=== PATIENT | male | born 1950 | race Caucasian/White ===

== ENCOUNTER 2021-06-30 08:00 | Outpatient (CLI) | payer MEDICARE ==
--- NOTE | 2021-06-30 14:38 | XRAY Report ---
PROCEDURE: Chest 2 View X-Ray INDICATIONS: COUGH TECHNIQUE: 2 view(s) of the chest. COMPARISON: None. FINDINGS: Surgical changes and devices: None. Lungs and pleura: Emphysematous change with a bibasilar predominance. Question small bilateral pleura l effusions versus bibasilar pleural blunting. Question right lower lobe lung mass. Mediastinum: There is right hilar fullness. Question prominent vasculature versus adenopathy. Heart s ize is normal. Bones and chest wall: No suspicious bony abnormalities. Soft tissues appear unremarkable. IMPRESSION: 1. Emphysema with a bibasilar predominance. 2. Question right lower lobe lung mass with right hilar fullness. Recommend chest CT with contrast. Comment: These findings were flagged as urgent in the PACS system, requiring a call to the referring provider from the staff at [facility]. Reviewed by: Valeriy Munoz MD on 06/30/2021 2:36 PM PDT Approved by: Valeriy Munoz MD on 06/30/2021 2:36 PM PDT Station ID: [id number]
== END 2021-06-30 23:59 | disposition home or self-care (01) ==
LOC: DI.N 08:00
PROVIDERS: ATTEND Physician Assistant
DX: J43.9 Emphysema, unspecified (principal)

== ENCOUNTER 2022-08-01 08:00 | Outpatient (CLI) | payer MEDICARE | END 2022-08-01 23:59 | disposition home or self-care (01) | LOC: LAB.N 08:00 | PROVIDERS: ATTEND Registered Nurse | DX: N48.9 Disorder of penis, unspecified (principal) | CPT/HCPCS: 86803; 87070; 87205; 87340; 87389; 87522 ==

== ENCOUNTER 2022-08-02 10:47 | Outpatient (CLI) | payer MEDICARE | END 2022-08-02 10:48 | disposition home or self-care (01) | LOC: LAB.N 10:47 | PROVIDERS: ATTEND Physician Assistant | DX: Z53.9 Procedure and treatment not carried out, unspecified reason (principal) ==

== ENCOUNTER 2023-11-26 09:43 | Inpatient (IN) ==
--- NOTE | 2023-11-26 09:56 | ED Physician Documentation ---
PD HPI DYSPNEA Stated complaint Stated Complaint: OD Chief complaint Chief Complaint: General History obtained from History obtained from: Patient History of Present Illness Timing - onset: How many days ago (1-2) Timing - details: Gradual onset and Still present Severity Comments: He has noted some headache developing since yesterday. No history of ACEVEDO. Inciting event(s): Out of meds (He ran out of his trazodone for sleep at night 100 mg about 7 to 8 days ago. Difficulty with getting refill and is available today at the pharmacy. He attributes weakness and confusion to withdrawal from the trazodone.) Similar symptoms before: Has not had sx before Additional information Additional information: He uses trazodone for sleep at night and generally anxiety. He takes 100 mg nightly. He has been doing this for many years. His prescription ran out 7 to 8 days ago and there is difficulty with the refill. It is available today but he had not slept well for the last 5 or 6 days. He is feeling somewhat anxious, generally weak, somewhat confused and also developed headache. No flu type symptoms such as fever chills or cough. Baseline dyspnea with COPD. Because he was having headache and general what he felt were "withdrawal from trazodone" symptoms, he was an attempt to feel better, took previous prescription of oxycodone/acetaminophen. He did take what was in the bottle which was he believes 16 tablets. He did not intentionally need to take an ov erdose per se. He started getting sleepy and realized he had overdone and called EMS. They found him to be somnolent but still with good oxygenation and ventilation. They did give Narcan anyway and he became even more awake. On arrival here he is conversant but does seem place a little confused. He is quite sure in his own thinking that the symptoms are from trazodone withdrawal. Meds/Allgy Home Medications Ambulatory Orders Medication Instructions Recorded Confirmed diclofenac sodium 100 mg 75 mg PO BID 12/14/15 11/26/23 tablet,extended release 24 hr aspirin 81 mg tablet,delayed 81 mg PO DAILY 11/26/23 11/26/23 release atorvastatin 20 mg tablet 20 mg PO DAILY 11/26/23 11/26/23 bupropion HCl 150 mg 24 hr tablet, 150 mg PO DAILY 11/26/23 11/26/23 extended release duloxetine 60 mg capsule,delayed 60 mg PO DAILY 11/26/23 11/26/23 release levothyroxine 150 mcg tablet 150 mcg PO DAILY 11/26/23 11/26/23 pregabalin 150 mg capsule 150 mg PO DAILY 11/26/23 11/26/23 trazodone 50 mg tablet 50 mg PO BID 11/26/23 11/26/23 Allergies Allergies Allergy/AdvReac Type Severity Reaction Status Date / Time penicillin G Allergy Unknown Verified 11/26/23 10:01 [facility] Medical History Medical History (Updated 11/26/23 @ 14:25 by Eb Muñoz DNP) Hypothyroidism Depression Anxiety Insomnia Surgical History Surgical History (Updated 11/26/23 @ 10:01 by Kerline Lang, RN, BSN) History of hip replacement, total Social History Social History (Updated 11/26/23 @ 10:01 by Kerline Lang, RN, BSN) Smoking Status: Former smoker If you are a former smoker, when did you quit? (Date/Year): 09/2022 How many cigarettes a day do you smoke? (20 cigarettes=1 Pk): 20 Second hand tobacco smoke exposure: No Do you dip or chew tobacco?: No Relationship: Level: Independent Home Mobility Equipment: Cane Do you feel safe in your home environment?: Yes Suffered physical, verbal, emotional, or financial abuse?: No Exam Constitutional normal general appearance and average body habitus HENMT normocephalic Eyes PERRL and EOMs intact bilaterally Lymph no lymphadenopathy noted Chest palpation of chest normal Respiratory auscultation abnormal (wheeziong noted.) Cardiovascular normal heart rate noted, regular rhythm noted and no edema Neurology director of national sales II-XII intact, no movement abnormality noted, no focal motor deficit noted and no sensory deficits noted Results Vitals Vitals: Vital Signs - 24 hr 11/26/23 09:48 11/26/23 10:14 11/26/23 10:15 Temperature 36.8 C Pulse Rate 72 70 68 Respiratory Rate 17 20 18 Blood Pressure 148/85 H 143/93 H O2 Saturation 97 99 O2 Source Room air Room air Room air Pain Intensity 6 11/26/23 10:20 11/26/23 10:31 11/26/23 11:00 Temperature Pulse Rate 72 73 Respiratory Rate 18 16 Blood Pressure 140/78 H 142/78 H O2 Saturation 97 99 O2 Source Room air Room air Pain Intensity 6 11/26/23 11:06 11/26/23 11:30 11/26/23 12:00 Temperature Pulse Rate 74 74 Respiratory Rate 22 24 Blood Pressure 133/84 H 140/85 H O2 Saturation 98 97 O2 Source Room air Room air Pain Intensity 5 8 8 11/26/23 12:14 11/26/23 12:30 11/26/23 13:00 Temperature Pulse Rate 79 77 Respiratory Rate 26 H 20 Blood Pressure 140/84 H 154/90 H O2 Saturation 95 94 O2 Source Room air Room air Pain Intensity 8 8 6 Oxygen O2 Source Room air Labs Labs: Laboratory Tests 11/26/23 10:06 WBC 11.9 H RBC 4.72 Hgb 14.9 Hct 43.3 MCV 91.7 MCH 31.6 H MCHC 34.4 RDW 11.8 L Plt Count 269 MPV 9.4 Neut # (Auto) 9.9 H Lymph # (Auto) 0.9 L [place] # (Auto) 0.9 Eos # (Auto) 0.1 Baso # (Auto) 0.0 Absolute Nucleated RBC 0.00 Nucleated RBC % 0.0 Sodium 125 L Potassium 3.9 Chloride 91 L Carbon Dioxide 28 Anion Gap 6.0 BUN 11 Creatinine 1.0 Estimated GFR (MDRD) 74 L Glucose 171 H Calcium 9.3 Magnesium 1.5 L Total Bilirubin 1.0 AST 26 ALT 24 Alkaline Phosphatase 68 Total Protein 6.5 Albumin 4.0 Globulin 2.5 Albumin/Globulin Ratio 1.6 Lipase 10 L Salicylates < 1.5 Acetaminophen 40.2 H* Ethyl Alcohol < 10.0 PD Medical Decision Making ED course Complexity details: d/w information technology consultant (hospitalist) ED course: The patient has not had much sleep in the last 5 or 6 days due to running out of his trazodone and difficulty with a refill. He was having headache as well. With some level of confusion and such, he did unintentionally take an overdose of his Percocet. He did not have suicidal ideation but was trying to get rid of his headache and then realized he had taken far too many and called EMS. He is still having concerns about his headache which is new and unusual for him. His CT of the head did not show any acute bleeds or obvious abnormality to my view. Report is still pending. He seems to be awake now after 3 hours from arrival. I feel the Narcan has had time to wear off and I do not feel he is at risk of resedation. He was given tramadol sorry Toradol to help with his headache and some Tylenol as well. Labs found his sodium to be 125. He does not take any diuretic. He may have over hydrated perhaps. Unclear. I asked if he had any history of hyponatremia or low sodium and he is not familiar with that. We do not have previous labs here. In addition to the concern for the oxycodone overdose, the acetaminophen component would still be of concern. The initial Tylenol level was 45 but was only at a 2-hour postingestion. The timing was longer than I would expect to help with charcoal so held off at the moment and with concern of resedation. We will recheck the level in 2 more hours and see if it is higher enough to be of concern. At this point with his general weakness, some level of confusion, headache and low sodium of 125, I feel these warranted to be in the hospital. I talked with the hospitalist who is in agreement. Discharge Plan Discharge Patient Disposition: ED Place in Observation Condition: Stable Clinical Impression: Acute hyponatremia, Acute confusion, General weakness Headache Qualifiers: Headache type: unspecified Headache chronicity pattern: acute headache Intractability: not intractable Qualified Code(s): R51.9 - Headache, unspecified Accidental overdose Qualifiers: Encounter type: initial encounter Qualified Code(s): T50.901A - Poisoning by unspecified drugs, medicaments and biological substances, accidental ( unintentional), initial encounter COPD (chronic obstructive pulmonary disease) Qualifiers: COPD type: unspecified COPD Qualified Code(s): J44.9 - Chronic obstructive pulmonary disease, unspecified Interventions: ED Admission Assessment Last Done: 11/26/23 14:05
[2023-11-26 10:10] LABS: BASOPHILS % (AUTO) 0.3 %; EOSINOPHILS # (AUTO) 0.1 10^3/uL (0.0-0.7); EOSINOPHILS % (AUTO) 0.4 %; HCT - HEMATOCRIT 43.3 % (42.0-52.0); HGB - HEMOGLOBIN 14.9 g/dL (14.0-18.0); LYMPHOCYTES # (AUTO) 0.9 10^3/uL (1.5-3.5); LYMPHOCYTES % (AUTO) 7.5 %; MEAN CORPUSCULAR HEMOGLOBIN 31.6 pg (27.0-31.0); MEAN CORPUSCULAR HGB CONC 34.4 g/dL (32.0-36.0); MEAN CORPUSCULAR VOLUME 91.7 fL (80.0-94.0); MEAN PLATELET VOLUME 9.4 fL (7.4-11.4); MONOCYTES # (AUTO) 0.9 10^3/uL (0.0-1.0); MONOCYTES % (AUTO) 7.8 %; NEUTROPHILS # (AUTO) 9.9 10^3/uL (1.5-6.6); NEUTROPHILS % (AUTO) 83.2 %; PLT - PLATELET COUNT 269 10^3/uL (130-450); RED BLOOD COUNT 4.72 10^6/uL (4.70-6.10); RED CELL DISTRIBUTION WIDTH 11.8 % (12.0-15.0); WHITE BLOOD COUNT 11.9 x10^3/uL (4.8-10.8)
[2023-11-26] MEDS: IPRATROPIUM/ALBUTEROL 3 ML NEB INH STA (10:11)
[2023-11-26] MEDS: SODIUM CHLORIDE 0.9% 1,000 ML IV STA ×2 (10:19→11:43)
[2023-11-26] MEDS: KETOROLAC 15 MG/ML VIAL IVP STA (10:20)
[2023-11-26 10:25] LABS: ALBUMIN/GLOBULIN RATIO 1.6 (1.0-2.2); ALKALINE PHOSPHATASE 68 IU/L (42-121); ALT ALANINE AMINOTRANSFERASE 24 IU/L (10-60); AST ASPARTATE AMINOTRANSFERASE 26 IU/L (10-42); BUN - BLOOD UREA NITROGEN 11 mg/dL (6-20); CALCIUM 9.3 mg/dL (8.5-10.3); CARBON DIOXIDE - CO2 28 mmol/L (21-32); CHLORIDE 91 mmol/L (101-111); ETOH - ETHANOL < 10.0 mg/dL; GFR - MDRD 74 (>89); GLUCOSE 171 mg/dL (74-104); LIPASE 10 U/L (11-82); MAGNESIUM 1.5 mg/dL (1.7-2.3); POTASSIUM 3.9 mmol/L (3.5-4.5); SODIUM 125 mmol/L (135-145); TOTAL PROTEIN 6.5 g/dL (6.4-8.9)
[2023-11-26 10:39] LABS: SALICYLATE < 1.5 mg/dL
[2023-11-26 10:40] LABS: ACETAMINOPHEN 40.2 ug/mL
[2023-11-26] MEDS: MAGNESIUM SULFATE 2 GRAM 2 GM/50 ML BAG IV ONE (11:43)
[2023-11-26] MEDS: HYDROmorphone 1 MG/ML CARPUJECT IVP STA (12:14)
[2023-11-26] MEDS: traZODone 50 MG TABLET PO STA (12:14)
--- NOTE | 2023-11-26 12:47 | CT Report ---
PROCEDURE: CT Head WO INDICATIONS: headache since yesterday TECHNIQUE: Noncontrast 4.5 mm thick angled axial sections acquired from the foramen magnum to the vertex. For r adiation dose reduction, the following was used: automated exposure control, adjustment of mA and/or kV according to patient size. COMPARISON: None. FINDINGS: Image quality: Excellent. CSF spaces: Basal cisterns are patent. No extra-axial fluid collections. Ventricles are normal in size and shape. Brain: No midline shift. No intracranial masses or hemorrhage. [place]-white matter interface is norm al. Skull and face: Calvarium and visualized facial bones are intact, without suspicious lesions. Sinuses: Visualized sinuses and mastoids are clear. IMPRESSION: No acute intracranial pathology. Reviewed by: Valeriy Munoz MD on 11/26/2023 12:45 PM PDT Approved by: Valeriy Munoz MD on 11/26/2023 12:45 PM PDT Station ID: [id number]
--- NOTE | 2023-11-26 13:32 | HISTORY & PHYSICAL EXAMINATION ---
Chief Complaint <Fartun Diallo - Amador Filed: 11/26/23 14:01> Chief Complaint Chief Complaint: Overdose on oxycodone with Tylenol History of Present Illness <Fartun Diallo - Amador Filed: 11/26/23 14:01> Admitted From Admitted From:: ER History Obtained From Records Reviewed: yes History obtained from: patient interview Exam Limitations: none History of Present Illness HPI Comment/Other: Patient presenting today with accidental overdose of oxycodone mixed with Tylenol. Patient states he took 16 pills last night at 9 PM. He got dizzy and then called 911. Patient states that he took these pills due to a constant 8 out of 10 headache that he has been experiencing for the last 3 days. Patient suddenly ran out of trazodone prescription 8 days ago. He endorses nausea, tinnitus, dizziness and having no energy for the last few days. He called his PCP last night and the doctor was able to refill his trazodone prescription this morning. Patient also complained of shortness of breath including on exertion. He has a history of COPD but his at home spirometry shows a range between 93-97 consistently. Patient states he has not been eating very well and does not typically drink much water. He states that he increased his water intake to 6 glasses in the last 48 hours. He is urinating about 4-5 times a day. Patient denies any recent use of drugs, including IV drugs, or alcohol use or smoking. Patient denies chest pain, abdominal pain, visual changes, fevers, weight changes, night sweats, or bowel changes. Meds/Allgy <Fartun Diallo - Last Filed: 11/26/23 14:01> Home Medications Ambulatory Orders Medication Instructions Recorded Confirmed bupropion HCl 150 mg tablet,12 hr 150 mg PO BID 12/14/15 12/15/15 sustained-release (Wellbutrin SR) diclofenac sodium 100 mg 75 mg PO BID 12/14/15 12/15/15 tablet,extended release 24 hr levalbuterol tartrate 45 200 puff inhalation DAILY 12/14/15 12/15/15 mcg/actuation aerosol inhaler (Xopenex HFA) levothyroxine 75 mcg tablet 75 mcg PO QDAC 12/14/15 12/15/15 mometasone-formoterol HFA 100 8.8 g IH BID 12/14/15 12/15/15 mcg-5 mcg/actuation aerosol inhaler (Dulera) tamsulosin 0.4 mg capsule 0.4 mg PO DAILY 12/14/15 12/15/15 venlafaxine 37.5 mg tablet 37.5 mg PO DAILY 12/14/15 12/15/15 Allergies Allergies Allergy/AdvReac Type Severity Reaction Status Date / Time penicillin G Allergy Unknown Verified 11/26/23 10:01 PFSH <Fartun Diallo - Last Filed: 11/26/23 14:01> Medical History Medical History (Updated 11/26/23 @ 14:25 by Eb Muñoz DNP) Hypothyroidism Depression Anxiety Insomnia Surgical History Surgical History (Updated 11/26/23 @ 10:01 by Kerline Lang, RN, BSN) History of hip replacement, total Social History Social History (Updated 11/26/23 @ 10:01 by Kerline Lang, RN, BSN) Smoking Status: Former smoker How many cigarettes a day do you smoke? (20 cigarettes=1 Pk): 10 Relationship: Do you feel safe in your home environment?: Yes Suffered physical, verbal, emotional, or financial abuse?: No POLST Patient has POLST: No POLST Status: Full Code Review of Systems <Fartun Diallo - Last Filed: 11/26/23 14:01> Constitutional Reports: Fatigue; Denies: Fever or Night sweats Eyes Denies: Vision loss or Change in vision Ears, nose, mouth, and throat Reports: Hearing loss, Tinnitus and Other (Denies ear fullness/pressure) Cardiovascular Reports: lightheadedness and shortness of breath with exertion; Denies: chest pain, swelling of feet/ankles or Syncope Respiratory Reports: Shortness of breath; Denies: Cough Gastrointestinal Denies: Abdominal pain, Diarrhea or Change in bowel habits Genitourinary Denies: Painful urination or Incontinence Musculoskeletal Denies: Back pain Integumentary/Breast Reports: Changes in skin color (Blanched spots and dark discoloration on arms; patient says began 1 yr ago) Neurological Reports: Headache Psychiatric Reports: Depression, Anxiety, Change in sleep pattern and Difficulty concentrating Endocrine Reports: Fatigue Hematologic/Lymphatic Denies: Enlarged lymph nodes Allergic/Immunologic Denies: Facial swelling <Fartun Diallo - Last Filed: 11/26/23 14:01> Prior Level of Functionality: Independent with ADLs Exam <Fartun Diallo - Last Filed: 11/26/23 14:01> Constitutional normal general appearance Mild distress HENMT head/scalp atraumatic Eyes no scleral icterus Minimal reaction to light Neck/C-Spine visual inspection normal Lymph no lymphadenopathy noted Chest inspection of chest normal Respiratory breath sounds equal bilaterally Cardiovascular normal heart rate noted Gastrointestinal abdomen normal to inspection Genitourinary no CVA tenderness Back/Pelvis spine normal to inspection Extremities normal to inspection Neurology speech normal and coordination normal Skin no rash Sepsis Event Note (H) <Fartun Diallo - Last Filed: 11/26/23 14:01> Evaluation Current Stage of Sepsis: Ruled out Conclusion/Plan <Fartun Diallo - Last Filed: 11/26/23 14:01> Problem List (1) Accidental overdose: Qualifiers: Encounter type: initial encounter Qualified Code(s): T50.901A - Poisoning by unspecified drugs, medicaments and biological substances, accidental (unintentional), initial encounter (2) Acute hyponatremia: (3) COPD (chronic obstructive pulmonary disease): Qualifiers: COPD type: unspecified COPD Qualified Code(s): J44.9 - Chronic obstructive pulmonary disease, unspecified (4) Headache: Qualifiers: Headache chronicity pattern: acute headache Headache type: unspecified Intractability: not intractable Qualified Code(s): R51.9 - Headache, unspecified (5) General weakness: Lab Results Lab results reviewed: Yes 11/26/23 10:06 11/26/23 10:06 EKG Results EKG Interpreted Independently: Yes <Eb Muñoz DNP - Last Filed: 11/26/23 14:25> Problem List (1) Accidental overdose: Plan: Tylenol level 40.2 on presentation Recheck Tylenol level Consider NAC protocol LFTs in a.m. Gentle IVF (2) Acute hyponatremia: Plan: Trend sodium levels every 6 hours Normal saline drip at 100 cc an hour Likely secondary to polypharmacy/increased water intake over the past 48 hours Neurochecks (3) COPD (chronic obstructive pulmonary disease): Plan: Patient reports he is not on a home regimen for this, however his medication review shows multiple inhalers Restart Dulera inhaler, Consider as needed nebs COPD does not appear to be in acute exacerbation (4) Headache: Plan: Likely secondary to withdrawal from trazodone Says he has been not been able to sleep for several days because of withdrawal from his trazodone, he states that he also has a8 out of 10 throbbing headache that is constant I expect this will resolve after he receives trazodone tonight and is able to sleep Will avoid Tylenol Consider low-dose oxycodone as he takes this at home (5) General weakness: Plan: PT/OT eval tomorrow if this does not improve Plan Patient was seen and examined by me with a separate encounter after being seen by CRYSTAL student. I reviewed the student's documentation including patient history, physical examination, laboratory, imaging, clinical assessment and treatment plan. I have discussed the management of the patient with the student, and with the patient. There are no changes. Diagnostic Imaging Results Diagnostic Imaging Results: positive Final report reviewed Diagnostic Imaging Results Comments: CT head no acute intracranial abnormality Core Measures <Fartun Diallo - Last Filed: 11/26/23 14:01> DVT/VTE - Prophylaxis VTE/DVT Prophylaxis med ordered at admit?: Yes Stroke - Rehab Assessment Rehab services assessment to be ordered?: No AMI - Statin at Admit Aspirin Prescribed on Admit: No <Eb Muñoz DNP - Last Filed: 11/26/23 14:25> DVT/VTE - Prophylaxis VTE/DVT Device ordered at admit?: No
[2023-11-26] MEDS ORDERED: SODIUM CHLORIDE FLUSH 0.9% 10 ML SYRINGE IVP PRN (14:22)
[2023-11-26] MEDS: PROCHLORPERAZINE 10 MG/2 ML VIAL IVP PRN (15:41)
[2023-11-26] MEDS: ACETYLCYSTEINE 4,500 MG in DEXTROSE 5% 500 ML IV ONE (16:08)
[2023-11-26] MEDS ORDERED: ONDANSETRON 4 MG/2 ML VIAL IVP PRN (16:11)
--- NOTE | 2023-11-26 16:17 | PHARMACY PROGRESS NOTE ---
Best Possible Medication History Admit Date and Time: 11/26/23 1324 Processed by: Pharmacy Medications reviewed in ED?: Yes Medication History completed: Yes Patient Interview: Completed Secondary Source(s): Pharmacy records and Insurance records [facility] Statement: As the person ultimately responsible for medication therapy, providers are able to order a medication from an existing home medication list in [facility] via the "Reconcile Routine" prior to Confirmation of that medication by academic support assistant. Such practice is discouraged except when the physician, in their clinical judgment, deems that a medical need exists for a medication without regard to previous use.
[2023-11-26] MEDS: DICLOFENAC SODIUM DR 75 MG TABLET PO SCH (16:36)
[2023-11-26] MEDS: SODIUM CHLORIDE FLUSH 0.9% 10 ML SYRINGE IVP SCH (16:36)
[2023-11-26] MEDS: SODIUM CHLORIDE 0.9% 1,000 ML IV SCH (18:46)
[2023-11-26] MEDS ORDERED: DEXTROSE 5% IV ONE (19:10)
[2023-11-26] MEDS ORDERED: ACETYLCYSTEINE IV ONE (19:10)
[2023-11-26] MEDS: traZODone 50 MG TABLET PO SCH (20:57)
[2023-11-27 05:52] LABS: HCT - HEMATOCRIT 39.5 % (42.0-52.0); HGB - HEMOGLOBIN 13.2 g/dL (14.0-18.0); MEAN CORPUSCULAR HEMOGLOBIN 31.3 pg (27.0-31.0); MEAN CORPUSCULAR HGB CONC 33.4 g/dL (32.0-36.0); MEAN CORPUSCULAR VOLUME 93.6 fL (80.0-94.0); MEAN PLATELET VOLUME 9.1 fL (7.4-11.4); RED BLOOD COUNT 4.22 10^6/uL (4.70-6.10); RED CELL DISTRIBUTION WIDTH 12.1 % (12.0-15.0); WHITE BLOOD COUNT 9.6 x10^3/uL (4.8-10.8)
[2023-11-27] MEDS: LEVOTHYROXINE 75 MCG TABLET PO SCH (06:38)
[2023-11-27 06:41] LABS: CALCIUM 8.2 mg/dL (8.5-10.3); CREATININE 0.9 mg/dL (0.6-1.3); POTASSIUM 4.1 mmol/L (3.5-4.5)
[2023-11-27 07:49] LABS: ALBUMIN 3.5 g/dL (3.2-5.5); BILIRUBIN,DIRECT 0.2 mg/dL (0.03-0.18); BILIRUBIN,TOTAL 0.7 mg/dL (0.2-1.0); TOTAL PROTEIN 5.6 g/dL (6.4-8.9)
[2023-11-27] MEDS: PREGABALIN 100 MG CAPSULE PO SCH (08:15)
[2023-11-27] MEDS: TAMSULOSIN 0.4 MG CAPSULE PO SCH (08:15)
[2023-11-27] MEDS: ENOXAPARIN 40 MG/0.4 ML SYRINGE SUBQ SCH (08:15)
[2023-11-27] MEDS: ATORVASTATIN 10 MG TABLET PO SCH (08:15)
[2023-11-27] MEDS: PREGABALIN 25 MG CAPSULE PO SCH (08:16)
[2023-11-27] MEDS: buPROPion XL 150 MG TABLET PO SCH (08:16)
[2023-11-27] MEDS: ASPIRIN EC 81 MG TABLET PO SCH (08:16)
[2023-11-27] MEDS: DULoxetine 60 MG CAPSULE PO SCH (08:16)
[2023-11-27 11:45] VITALS: O2SAT 94
--- NOTE | 2023-11-27 13:32 | Discharge Summary ---
"Discharge Summary Admit Date: 11/26/23 Discharge Date: 11/27/23 Discharging Provider: Eb Muñoz NP Primary Care Provider: Peyton Torri Code Status: Attempt Resuscitation DIAGNOSES Admission Diagnoses: Unintentional Tylenol overdose Hyponatremia Anxiety depression COPD without exacerbation Discharge Diagnoses with Status of Each Condition: Unintentional Tylenol overdoseresolved Hyponatremiaresolved Anxiety depressionchronic COPD without exacerbationchronic HPI History of Present Illness: 73-year-old male H significant for anxiety/depression/COPDWho recently ran out of his trazodone and was attempting to compensate for this with taking increasing doses of Percocet. He took 16 Percocet fives and then called 911 when he began to feel ill. In the ER, he was noted to have a Tylenol level of40.2. He was also somnolent on presentation, so CT head was performed which showed no acute abnormalities. He was also noted to have sodium of125. Because of this hyponatremia and acute Tylenol overdose, hospitalist was contacted for admission CONSULTS | PROCEDURES Consultations: Poison control contacted by ER provider HOSPITAL COURSE Hospital Course: Patient was admitted and placed on IV fluids. NAC protocol was initiated. He was stable overnight, with Tylenol level returning to normal and sodium above 130. 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 ALLERGIES Allergies Allergy/AdvReac Type Severity Reaction Status Date / Time penicillin G Allergy Unknown Verified 11/26/23 10:01 MEDICATIONS Ambulatory Orders Medication Instructions Recorded Confirmed diclofenac sodium 100 mg 75 mg PO BID 12/14/15 11/26/23 tablet,extended release 24 hr aspirin 81 mg tablet,delayed 81 mg PO DAILY 11/26/23 11/26/23 release atorvastatin 20 mg tablet 20 mg PO DAILY 11/26/23 11/26/23 bupropion HCl 150 mg 24 hr tablet, 150 mg PO DAILY 11/26/23 11/26/23 extended release duloxetine 60 mg capsule,delayed 60 mg PO DAILY 11/26/23 11/26/23 release levothyroxine 150 mcg tablet 150 mcg PO DAILY 11/26/23 11/26/23 pregabalin 150 mg capsule 150 mg PO DAILY 11/26/23 11/26/23 trazodone 50 mg tablet 50 mg PO BID 11/26/23 11/26/23 magnesium 200 mg tablet 400 mg (2 x 200 mg) PO DAILY #30 11/27/23 tabs PHYSICAL EXAM AT DISCHARGE General Appearance: positive No acute distress and Alert Respiratory: positive Chest non-tender and No respiratory distress Cardiovascular: positive Regular rate & rhythm and No murmur Peripheral Pulses: positive 2+ Abdomen: positive Non-tender Rectal: negative Tenderness Back: negative CVA tenderness (R) Skin: positive Color nml Extremities: positive Non-tender Neurologic/Psychiatric: positive Oriented x3 LABS 11/27/23 05:38 11/27/23 12:25 DIAGNOSTIC IMAGING Diagnostic Imaging Results: Final report reviewed Diagnostic Imaging Results Comments: CT head no acute findings SEPSIS Current Stage of Sepsis: Ruled out QUALITY (Female Hip Fx Only) Was patient sent home on osteoporosis medication?: No FOLLOW UP Follow Up: With PCP TIME SPENT Time Spent in Discharge (Minutes): 25 Discharge Plan Discharge Patient Disposition: Home, Self Care Condition: Stable Medically Cleared Date:: 11/27/23 Medically Cleared Comments:: Tylenol level now 1.4 Prescriptions: New magnesium 200 mg tablet 400 mg PO DAILY Qty: 30 0RF Continued diclofenac sodium 100 MG tablet extended release 24 hr 75 mg PO BID atorvastatin 20 mg tablet 20 mg PO DAILY trazodone 50 mg tablet 50 mg PO BID Rx Instructions: Take 1 tablet by mouth two times a day aspirin 81 mg tablet,delayed release (DR/EC) 81 mg PO DAILY levothyroxine 150 mcg tablet 150 mcg PO DAILY Rx Instructions: Take 1 tablet PO daily bupropion HCl 150 mg tablet extended release 24 hr 150 mg PO DAILY Rx Instructions: Take 1 tablet daily pregabalin 150 mg capsule 150 mg PO DAILY Patient Comments: Pt states taking daily Rx Instructions: Take 1 capsule by mouth daily duloxetine 60 mg capsule,delayed release(DR/EC) 60 mg PO DAILY Diet: Regular Health Concerns: You are a 73-year-old maleWith past medical history significant for insomnia, anxiety, depression, whoTook several doses of Percocet at home. You were brought to the ER for a Tylenol overdose. Tylenol is an ingredient in Percocet, so that is where that came from. 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 Print Language: [place] Patient Instructions: Acetaminophen Oxycodone tablets Stand Alone Forms: PCP List Follow-up Care: PEYTON LANCE ARNP [Primary Care Provider] -"
== END 2023-11-27 14:03 | disposition home or self-care (01) | DRG 918 ==
LOC: ED 09:43 → MS2 09:43 → OBSVTOIN 13:24 → MS2 14:05
PROVIDERS: ADMIT Nurse Practitioner Acute Care; ATTEND Nurse Practitioner Acute Care
DX: Z79.890 Hormone replacement therapy; T43.216A Underdosing of selective serotonin and norepinephrine reuptake inhibitors, initial encounter; Z91.138 Patient's unintentional underdosing of medication regimen for other reason; T50.901A Poisoning by unspecified drugs, medicaments and biological substances, accidental (unintentional), initial encounter; R42 Dizziness and giddiness; Z96.649 Presence of unspecified artificial hip joint; J44.9 Chronic obstructive pulmonary disease, unspecified; Z79.82 Long term (current) use of aspirin; F32.A Depression, unspecified; E87.1 Hypo-osmolality and hyponatremia; Z79.899 Other long term (current) drug therapy; T39.1X1A Poisoning by 4-Aminophenol derivatives, accidental (unintentional), initial encounter; Z87.891 Personal history of nicotine dependence; F41.9 Anxiety disorder, unspecified; E03.9 Hypothyroidism, unspecified; R53.1 Weakness; R40.0 Somnolence; R51.9 Headache, unspecified; G47.00 Insomnia, unspecified; R41.0 Disorientation, unspecified